=== PATIENT | male | born 1960 | race Caucasian/White ===

== ENCOUNTER 2024-01-20 12:01 | Day surgery (SDC) | payer BC ==
[~2024-01-20] VITALS: Ht 180.3 cm; Wt 74.9 kg
[~2024-01-20 12:01] MED LIST: LR 1,000 ML IV SCH
[2024-01-20] MEDS ORDERED: NORCO 325 MG-51 TAB PO (12:54)
[2024-01-20] MEDS ORDERED: MIRALAX238G PO (12:54)
[2024-01-20] MEDS ORDERED: SENOKOT8.6 MG PO (12:55)
[2024-01-20 12:56] VITALS: BP 125/68; PULSE 50; TEMP 97.4
[2024-01-20] MEDS ORDERED: TYLENOL 500MG500 MG PO (12:56)
[2024-01-20] MEDS ORDERED: Lidocaine PF 2% (20 MG/ML) 5 ML VIAL ONE (14:40)
[2024-01-20] MEDS ORDERED: NS 10 ML IV ONE (14:40)
[2024-01-20] MEDS ORDERED: Topical Skin Adhesive 1 EACH (1 ML) TOP ONE (15:23)
[2024-01-20 15:51] VITALS: BP 114/58; PULSE 61; TEMP 97.1
[2024-01-20] MEDS ORDERED: Ondansetron 4 MG/2 ML VIAL IV PRN (16:00)
[2024-01-20] MEDS ORDERED: Morphine 4 MG/ML VIAL IV PRN (16:00)
[2024-01-20] MEDS ORDERED: Ibuprofen 600 MG TAB PO PRN (16:00)
[2024-01-20 16:05] VITALS: BP 115/62; PULSE 56
--- NOTE | 2024-01-20 16:25 | NUR ---
1551 RETURNS TO ROOM 6 FROM OR PER CART WITH HOB ELEVATED 30 DEGREES. DROWSY, AROUSES SPONTANEOUSLY, FAMILIARIZED WITH SURROUNDINGS. RESP UNLABORED. VITAL SIGNS OBTAINED. INCISIONS X 2 PORT INSERTION SITE RIGHT NECK/CHEST INTACT WITHOUT REDNESS EDEMA OR DRAINAGE. DENIES DISCOMFORT. CALL LIGHT AT SIDE. SISTER IN ROOM 1600 AWAKE, ALERT. HOB ELEVATED 70 DEGREES. TOLERATES PO WATER AND JUICE WITHOUT NAUSEA. DISCHARGE INSTRUCTIONS REVIEWED. PATIENT AND SISTER VERBALIZE UNDERSTANDING. COPY PROVIDED IN DISCHARGE FOLDER [id number] SITS ON EDGE OF CART. DRESSES SELF
== END 2024-01-20 16:25 | disposition home or self-care (01) ==
LOC: SDCO 12:01
DX: C20 Malignant neoplasm of rectum (principal); F17.210 Nicotine dependence, cigarettes, uncomplicated
CPT/HCPCS: C1788; J0690; J2704; J7120